=== PATIENT | female | born 2005 | race Caucasian/White ===

== ENCOUNTER 2023-11-23 18:34 | Emergency (ER) | payer OTHER, SELFPAY ==
[2023-11-23 18:48] VITALS: BP 134/92; PULSE 84; RESP 16; TEMP 36.5; O2SAT 100
--- NOTE | 2023-11-23 18:58 | ED.GENADULT ---
HPI - General Adult General Chief complaint: Extremity Injury, Upper Stated complaint: INJURED R THUMB Source: patient Mode of arrival: ambulatory Limitations: no limitations History of Present Illness HPI narrative: Patient presents for evaluation of an injury to the right thumb. She indicates that 6 days ago she jammed her right thumb in a door. She noted some bleeding from the distal aspect of the right thumb. She had acrylic nail in place at that time. Today she bumped her right thumb against the steering wheel. She noted that the proximal portion of the nail plate partially avulsed from the nail bed. The acrylic nail is still in place. She has some throbbing pain in the distal phalanx that she attributes an injury limited to the nail. She is right-hand dominant. She is not diabetic. Date of last tetanus unknown. Related Data Home Medications Medication Instructions Recorded Confirmed desogestrel 0.15 mg-ethinyl 1 tablet PO DAILY 11/23/23 11/23/23 estradiol 0.03 mg tablet (Isibloom) Allergies Allergy/AdvReac Type Severity Reaction Status Date / Time No Known Allergies Allergy Verified 11/23/23 19:08 Review of Systems Review of Systems: CONSTITUTIONAL: Denies fever, chills, or sweats. EYES: Denies visual changes, redness, or discharge. ENT: Denies rhinorrhea, congestion, sore throat, or otalgia. CARDIOVASCULAR: Denies chest pain, palpitations, or edema. RESPIRATORY: Denies cough or dyspnea. GASTROINTESTINAL: Denies abdominal pain, nausea, vomiting, or diarrhea. GENITOURINARY: Denies dysuria or hematuria. SKIN: Reports injury to the nail plate of the right thumb with a scant amount of bleeding from under the nail plate MUSCULOSKELETAL: Reports pain in the right thumb. Denies back pain and other joint pain NEUROLOGIC: Denies headache, numbness, dizziness, or weakness. PSYCHIATRIC: Denies anxiety or depression. [facility] Past Medical History Medical History No pertinent past medical history Surgical History Surgical History No pertinent past surgical history Family History Family History Mother Family history non-contributory Social History Social History Smoking status: Current some day smoker Tobacco type: e-cigarettes/vaping Occupation/Education: student Gender identity (if verbalized by the patient): Female Exam Narrative: GENERAL: Well-appearing, well-nourished, and in no acute distress. HEAD: Normocephalic, atraumatic. EYES: PERRLA and EOMI. ENT: Nares clear, no rhinorrhea or epistaxis. Mucous membranes moist. Oropharynx without tonsillar hypertrophy exudate or other lesions. Bilateral TMs pearly foster nonbulging NECK: Supple. No adenopathy or masses. No carotid bruits or JVD CHEST: Clear to auscultation. No respiratory distress. No wheezes rales or rhonchi HEART: Regular rate and rhythm. No murmur heard. Normal peripheral pulses. ABDOMEN: Soft, nontender, nondistended, normal active bowel sounds. EXTREMITIES: Normal range of motion. No edema. SKIN: The nail plate of the right thumb is partially avulsed from the nail bed at the proximal aspect of the nail plate NEURO: No focal deficits. Alert and oriented x3. PSYCH: Normal mood and affect. Course Course Emergency Course: This is a 18-year-old female who presented for evaluation of a nail avulsion. I offered to check an x ray on her thumb. She declined, stating pain is more superficial, and she believes it is limited to the nail. the acrylic nail is strongly adhered to the nail plate. I did not think I would be able to successfully move the acrylic plate without disrupting the nail. I was hesitant to remove the nail plate due to risk for infection or complication. I think sh
[2023-11-23] MEDS: TETANUS,DIPHTHERIA,AC PERTUSSIS ADULT (0.5 ML) BOOSTRIX IM (19:39)
== END 2023-11-23 19:50 | disposition home or self-care (01) ==
PROVIDERS: Emergency Provider Nurse Practitioner
DX: S61.101A Unspecified open wound of right thumb with damage to nail, initial encounter (principal); W22.8XXA Striking against or struck by other objects, initial encounter; Z23 Encounter for immunization; F17.290 Nicotine dependence, other tobacco product, uncomplicated
CPT/HCPCS: 29130; 90471; 90715; 99203; G0463